=== PATIENT | male | born 1990 | race Caucasian/White ===

== ENCOUNTER 2018-04-16 17:24 | Emergency (ER) | payer SELFPAY ==
[~2018-04-16] VITALS: Ht 172.7 cm; Wt 72.6 kg
--- NOTE | 2018-04-16 17:46 | Emergency Room Report ---
History of Present Illness General Chief Complaint: Alcohol Intoxication Source: Patient Present Illness HPI 28-year-old male patient presents ER brought in by ambulance for EtOH intoxication. Patient reports that he drank 3 bottles of wine and 2 tall boys since this morning. Denies acute complaints at this time, contrary to triage record. Denies chest pain, shortness of breath, abdominal pain. Denies vomiting.. Denies drug use. Denies hitting head or other acute trauma. Patient History Past Medical History: see triage record Reviewed Nursing Documentation: PMH: Agreed; PSxH: Agreed Review of Systems All Other Systems: negative except mentioned in HPI Physical Exam Vital Signs Date Time Temp Pulse Resp B/P (MAP) Pulse Ox O2 Delivery O2 Flow Rate FiO2 04/16/18 17:21 98.2 100 16 129/68 96 Room Air 98.2 Sp02 EP Interpretation: reviewed, normal General Appearance: well appearing, no apparent distress, alert, GCS 15, non- toxic Head: normocephalic, atraumatic, other - Ma sign, negative raccoon eyes, no scalp depression, no scalp laceration Eyes: bilateral eye normal inspection, bilateral eye PERRL ENT: hearing grossly normal, normal pharynx, no angioedema, normal voice, uvula midline, moist mucus membranes Neck: full range of motion Respiratory: lungs clear, normal breath sounds, no rhonchi, no respiratory distress, no accessory muscle use, no wheezing, speaking full sentences Cardiovascular #1: regular rate, rhythm, no edema Musculoskeletal: back normal, digits/nails normal, gait/station normal, normal range of motion, non-tender Neurologic: alert, oriented x3, responsive, motor strength/tone normal, sensory intact Psychiatric: mood/affect normal Skin: no rash Medical Decision Making PA Attestation Dr. Noonan is my supervising Physician whom patient management has been discussed with. Diagnostic Impression: Primary Impression: Acute alcoholic intoxication ER Course Pt. presents to the ED for alcohol intoxication Ddx considered but are not limited to drug use, alcohol use, psychosis. Vital signs: are WNL, pt. is afebrile ER COURSE: patient resting comfortably in bed, in no acute distress, nontoxic appearing. patient able to answer questions without difficulty. Physical exam benign, lungs clear to auscultation, no trauma or lacerations, no abdominal TTP. no signs of head trauma, no scalp lacerations, no skull depression, negative Ma sign, negative raccoon eyes, no reports of head trauma, does not require CT of head at this time. Will allow patient to sleep off EtOH intoxication Patient up and walking around ER requesting to be discharged. Requesting to use phone to contact friend to get ride home. Patient denies acute symptoms in the ER at this time. Patient appears stable for discharge to home, ambulating without difficulty, steady gait. Instructed patient to not drink alcohol in excess. ER precautions given. Do not believe patient is a danger to himself or others at this time. DISCHARGE: At this time pt is stable for d/c to home. Patient is resting comfortably, in no acute distress, nontoxic appearing, talking without difficulty. Patient to take medications as instructed Will provide with patient care instructions and any necessary prescriptions. Care plan and follow-up instructions provided. Patient instructed to follow-up with primary care provider in 3 - 5 days. Patient questions asked and answered. Patient reports understanding and agreement to treatment plan. ER precautions given. Patient instructed to return to ER immediately for any new or worsening of symptoms including but not limited to increasing SOB, persistent fever. - Please note that this Emergency Department Report was dictated using [employer] dynamometer tester technology software, occasionally this can lead to erroneous entry secondary to interpretation by the dictation equipment. Last Vital Signs Date Time Temp Pulse Resp B/P (MAP) Pulse Ox O2 Delivery O2 Flow Rate FiO2 04/16/18 17:21 98.2 100 16 129/68 96 Room Air 98.2 Status: improved Disposition: HOME, SELF-CARE Condition: Stable Patient Instructions: Alcohol Intoxication, [id number] Additional Instructions: Followup with primary care provider in 3 -5 days. Do not drink alcohol in excess. Take medications as directed. Patient questions asked and answered. ER precautions given, patient instructed to return to ER immediately for any new or worsening of symptoms. Tj Garibay Apr 16, 2018 17:46
[2018-04-16 21:17] VITALS: BP 121/66
[2018-04-16 21:21] VITALS: BP 121/66
== END 2018-04-16 21:22 | disposition home or self-care (01) ==
LOC: EDBD 17:24 → EMR 17:45
DX: F10.129 Alcohol abuse with intoxication, unspecified (principal)
CPT/HCPCS: 99284

== ENCOUNTER 2019-03-22 06:28 | Emergency (ER) | payer SELFPAY ==
[~2019-03-22] VITALS: Ht 170.2 cm; Wt 81.6 kg
[2019-03-22 06:45] VITALS: BP 124/75
[2019-03-22] MEDS ORDERED: LORazepam Inj 2mg/ml 1ml IV ONE (06:45)
--- NOTE | 2019-03-22 06:48 | NUR ---
ED Nurse Note: Patient wasBIBA from friend's house due to ETOH. Patient states that he drank 5 bottle of vine, and snifed fentonyl after. AAO x4, HR 115, other VSS at this time, skin is dry, warm to touch.
--- NOTE | 2019-03-22 07:08 | Emergency Room Report ---
History of Present Illness General Chief Complaint: Alcohol Intoxication Source: Patient Present Illness HPI Patient presents with complaints of body aches and myalgia reports that he has been binge drinking for the past 5 days has had decreased oral intake as far as food and water Denies any chest pain denies any vomiting denies any diarrhea He feels generally weak as well Denies any other fall or trauma denies any focal weakness Allergies: Coded Allergies: No Known Allergies (Unverified , 03/22/19) Patient History Past Medical History: see triage record Pertinent Family History: none Reviewed Nursing Documentation: PMH: Agreed; PSxH: Agreed Review of Systems All Other Systems: negative except mentioned in HPI Physical Exam Vital Signs Date Time Temp Pulse Resp B/P (MAP) Pulse Ox O2 Delivery O2 Flow Rate FiO2 03/22/19 06:25 98.6 108 18 124/75 (91) 98 Room Air Sp02 EP Interpretation: reviewed, normal General Appearance: well appearing, no apparent distress Head: normocephalic, atraumatic Eyes: bilateral eye PERRL, bilateral eye EOMI ENT: hearing grossly normal, normal pharynx, TMs + canals normal, uvula midline Neck: full range of motion, supple, no meningismus, no bony tend Respiratory: lungs clear, normal breath sounds, no rhonchi, no respiratory distress, no retraction, no accessory muscle use Cardiovascular #1: normal peripheral pulses, regular rate, rhythm, no edema, no gallop, no JVD, no murmur Gastrointestinal: normal bowel sounds, non tender, soft, no mass, no organomegaly, non-distended, no guarding, no hernia, no pulsatile mass, no rebound Genitourinary: no CVA tenderness Musculoskeletal: normal inspection Neurologic: oriented x3, responsive, auto dealer III-XII nml as tested, motor strength/ tone normal, sensory intact Psychiatric: mood/affect normal Lymphatic: normal inspection, no adenopathy Medical Decision Making Diagnostic Impression: Primary Impression: Alcohol abuse Additional Impression: Dehydration ER Course The patient's history and presentation multiple differentials are in consideration patient required IV hydration examination reveals elevated total CK Consistent with dehydration and early rhabdomyolysis patient further hydrated Test is repeated and shows decreasing levels which is reassuring and patient stable for close outpatient follow-up Labs Test 03/22/19 06:45 03/22/19 09:10 White Blood Count 6.3 K/UL (4.8-10.8) Red Blood Count 4.99 M/UL (4.70-6.10) Hemoglobin 15.4 G/DL (14.2-18.0) Hematocrit 45.9 % (42.0-52.0) Mean Corpuscular Volume 92 FL (80-99) Mean Corpuscular Hemoglobin 30.8 PG (27.0-31.0) Mean Corpuscular Hemoglobin Concent 33.6 G/DL (32.0-36.0) Red Cell Distribution Width 12.7 % (11.6-14.8) Platelet Count 223 K/UL (150-450) Mean Platelet Volume 6.2 FL (6.5-10.1) Neutrophils (%) (Auto) 68.9 % (45.0-75.0) Lymphocytes (%) (Auto) 16.2 % (20.0-45.0) Monocytes (%) (Auto) 11.4 % (1.0-10.0) Eosinophils (%) (Auto) 1.6 % (0.0-3.0) Basophils (%) (Auto) 1.9 % (0.0-2.0) Sodium Level 142 MMOL/L (136-145) Potassium Level 4.0 MMOL/L (3.5-5.1) Chloride Level 100 MMOL/L (98-107) Carbon Dioxide Level 26 MMOL/L (21-32) Anion Gap 16 mmol/L (5-15) Blood Urea Nitrogen 7 mg/dL (7-18) Creatinine 1.0 MG/DL (0.55-1.30) Estimat Glomerular Filtration Rate > 60 mL/min (>60) Glucose Level 90 MG/DL (74-106) Calcium Level 9.8 MG/DL (8.5-10.1) Total Bilirubin 0.5 MG/DL (0.2-1.0) Aspartate Amino Transf (AST/SGOT) 84 U/L (15-37) Alanine Aminotransferase (ALT/SGPT) 59 U/L (12-78) Alkaline Phosphatase 109 U/L (46-116) Total Creatine Kinase 2289 U/L (26-308) 1725 U/L (26-308) Creatine Kinase MB 8.0 NG/ML (0.0-3.6) Creatine Kinase MB Relative Index 0.3 Total Protein 8.4 G/DL (6.4-8.2) Albumin 4.1 G/DL (3.4-5.0) Globulin 4.3 g/dL Albumin/Globulin Ratio 1.0 (1.0-2.7) Lipase 93 U/L (73-393) Urine Opiates Screen Negative (NEGATIVE) Urine Barbiturates Screen Positive (NEGATIVE) Phencyclidine (PCP) Screen Negative (NEGATIVE) Urine Amphetamines Screen Negative (NEGATIVE) Urine Benzodiazepines Screen Positive (NEGATIVE) Urine Cocaine Screen Negative (NEGATIVE) Urine Marijuana (THC) Screen Positive (NEGATIVE) Serum Alcohol 62 mg/dL Rhythm Strip Diag. Results EP Interpretation: yes Rate: 88 Rhythm: NSR, no PVC's, no ectopy Chest X-Ray Diagnostic Results Chest X-Ray Diagnostic Results : Chest X-Ray Ordered: Yes # of Views/Limited/Complete: 1 View Indication: Chest Pain EP Interpretation: Yes Interpretation: no consolidation, no effusion, no pneumothorax Impression: No acute disease Electronically Signed by: Esequiel Danielson DO Last Vital Signs Date Time Temp Pulse Resp B/P (MAP) Pulse Ox O2 Delivery O2 Flow Rate FiO2 03/22/19 06:45 98.6 18 124/75 98 Room Air 03/22/19 06:45 108 Status: improved Disposition: HOME, SELF-CARE Condition: Improved Scripts No Active Prescriptions or Reported Meds Additional Instructions: Patient is provided with the discharge instructions notified to follow up with primary doctor in the next 2-3 days otherwise return to the er with any worsening symptoms. Please note that this report is being documented using [email or web address] technology. This can lead to erroneous entry secondary to incorrect interpretation by the dictating instrument. Esequiel Danielson DO Mar 22, 2019 07:08
[2019-03-22 07:10] LABS: BASOPHILS % (AUTO) 1.9 % (0.0-2.0); EOSINOPHILS % (AUTO) 1.6 % (0.0-3.0); HEMATOCRIT 45.9 % (42.0-52.0); HEMOGLOBIN 15.4 G/DL (14.2-18.0); LYMPHOCYTES % (AUTO) 16.2 % (20.0-45.0); MEAN CORPUSCULAR VOLUME 92 FL (80-99); MONOCYTES % (AUTO) 11.4 % (1.0-10.0); NEUTROPHILS % (AUTO) 68.9 % (45.0-75.0); PLATELET COUNT 223 K/UL (150-450); RED BLOOD COUNT 4.99 M/UL (4.70-6.10); RED CELL DISTRIBUTION WIDTH 12.7 % (11.6-14.8); WHITE BLOOD COUNT 6.3 K/UL (4.8-10.8)
--- NOTE | 2019-03-22 07:21 | NUR ---
HAND-OFF: Report given to AMANDA Hughes.
[2019-03-22 07:22] LABS: ANION GAP 16 mmol/L (5-15); BLOOD UREA NITROGEN 7 mg/dL (7-18); CALCIUM 9.8 MG/DL (8.5-10.1); CARBON DIOXIDE 26 MMOL/L (21-32); CHLORIDE 100 MMOL/L (98-107); SODIUM 142 MMOL/L (136-145)
[2019-03-22 07:36] VITALS: BP 122/64
[2019-03-22 07:36] LABS: ALANINE AMINOTRANSFERASE 59 U/L (12-78); ALBUMIN 4.1 G/DL (3.4-5.0); ALKALINE PHOSPHATASE 109 U/L (46-116); ASPARTATE AMINO TRANSFERASE 84 U/L (15-37); BILIRUBIN,TOTAL 0.5 MG/DL (0.2-1.0); CREATINE KINASE 2289 U/L (26-308)
--- NOTE | 2019-03-22 07:36 | Diagnostic Imaging Report ---
EXAM: XR Chest, 1 View CLINICAL HISTORY: CP TECHNIQUE: Frontal view of the chest. COMPARISON: None FINDINGS: Lungs: Hypoventilatory changes of the lung bases and upper normal heart size. Pleural space: Unremarkable. No pneumothorax. Heart: See above. Mediastinum: Unremarkable. Bones/joints: Unremarkable. IMPRESSION: Hypoventilatory changes of the lung bases and upper normal heart size.
--- NOTE | 2019-03-22 07:37 | NUR ---
ED Nurse Note:pt. sleeping no signs of distress noted
[2019-03-22] MEDS ORDERED: LORazepam 1mg tab ORAL ONE (10:30)
--- NOTE | 2019-03-22 10:33 | NUR ---
ED Nurse Note:blood sent to labs ,pt. requested more ativan
[2019-03-22 10:50] LABS: CREATINE KINASE 1725 U/L (26-308)
[2019-03-22 11:29] VITALS: BP 121/64
[2019-03-22 11:50] VITALS: BP 121/64
--- NOTE | 2019-03-22 11:51 | NUR ---
ER DISCHARGE NOTE: Patient is cleared to be discharged per ERMD, pt is aox4, on room air, with stable vital signs. pt was given dc and homeless resourses instructions, pt was able to verbalize understanding, pt id band and iv site removed without complications. pt is able to ambulate with steady gait. pt took all belongings, bus tockens provided to safe and familiar location
== END 2019-03-22 11:52 | disposition home or self-care (01) ==
LOC: EDBD 06:28 → EMR 10:02
DX: E86.0 Dehydration (principal); F10.10 Alcohol abuse, uncomplicated; Y90.3 Blood alcohol level of 60-79 mg/100 ml
CPT/HCPCS: 36415; 71045; 80053; 80307; 82550; 82553; 83690; 85025; 93005; 96361; 96374; 99284; G0480; 80329

== ENCOUNTER 2020-02-20 16:38 | Emergency (ER) | payer MEDICAID ==
[~2020-02-20] VITALS: Ht 177.8 cm; Wt 77.1 kg
[2020-02-20] MEDS ORDERED: Morgan Lens TOPIC ONE (16:45)
[2020-02-20 16:46] VITALS: BP 128/68
[2020-02-20 17:45] VITALS: BP 128/68
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
== END 2020-02-20 17:45 | disposition left against medical advice (07) ==
LOC: EDBD 16:38 → EMR 17:20
DX: Z77.098 Contact with and (suspected) exposure to other hazardous, chiefly nonmedicinal, chemicals (principal); F10.129 Alcohol abuse with intoxication, unspecified
CPT/HCPCS: 99282